=== PATIENT | female | born 1990 | race Caucasian/White ===

== ENCOUNTER 2016-09-13 09:30 | Outpatient (CLI) | payer OTHER | END 2016-09-13 11:25 | disposition home or self-care (01) | LOC: FBCOUT 09:30 → FBC 09:30 → FBCOUT 11:25 | PROVIDERS: ATTEND Family Medicine | DX: O47.9 False labor, unspecified (principal); Z3A.00 Weeks of gestation of pregnancy not specified | CPT/HCPCS: 59025; G0463 ==

== ENCOUNTER 2016-09-17 13:16 | Observation (INO) | payer OTHER ==
[2016-09-17 13:46] VITALS: BMI 31.7
[2016-09-17] MEDS ORDERED: ONDANSETRON 4 MG/2ML 2 ML VIAL IV ONE (14:13)
[2016-09-17] MEDS ORDERED: IV START KIT ONE (14:17)
[2016-09-17] MEDS: LACTATED RINGERS 1,000 ML IV SCH ×2 (14:23→16:17)
[2016-09-17] MEDS ORDERED: ONDANSETRON 4 MG/2ML 2 ML VIAL IV PRN (18:56)
[2016-09-17 19:19] LABS: SPECIFIC GRAVITY 1.015 (1.001-1.030); URINE APPEARANCE CLEAR; URINE BILIRUBIN NEGATIVE (NEGATIVE); URINE BLOOD NEGATIVE (NEGATIVE); URINE COLOR YELLOW; URINE GLUCOSE (UA) NEGATIVE (NEGATIVE); URINE LEUKOCYTE ESTERASE NEGATIVE (NEGATIVE); URINE NITRITE NEGATIVE (NEGATIVE); URINE PROTEIN NEGATIVE (NEGATIVE); URINE UROBILINOGEN NORMAL (0-1 mg/dl)
[2016-09-17] MEDS ORDERED: OXYTOCIN IN LR 500 ML IV ONE ×2 (20:45→21:07)
[2016-09-17] MEDS ORDERED: ACETAMINOPHEN 500 MG TABLET PO PRN (20:55)
[2016-09-17] MEDS ORDERED: OXYTOCIN 10 UNITS/ML VIAL ONE (21:06)
[2016-09-17] MEDS ORDERED: LIDOCAINE 1% (PRES FREE) 30 ML VIAL ONE (21:07)
[2016-09-17] MEDS ORDERED: MINERAL OIL 25 ML BOT ONE (21:07)
[2016-09-17] MEDS ORDERED: PUMP TUBING ONE (21:07)
[2016-09-17] MEDS ORDERED: LIDOCAINE Viscous 2% 15 ML UDCUP ONE (21:07)
[2016-09-17 21:32] LABS: HEMATOCRIT 38.3 % (37.0-47.0); HEMOGLOBIN 12.9 gm/l (12.0-16.0); MEAN CELL VOLUME 81.8 fl (81.0-99.0); MEAN CORPUSCULAR HEMOGLOBIN 27.6 pg (27.0-31.0); MEAN CORPUSCULAR HGB CONC 33.7 g/dl (33.0-37.0); RED CELL DISTRIBUTION WIDTH 13.9 % (11.5-14.5)
[2016-09-18] MEDS: LACTATED RINGERS 1,000 ML IV SCH ×3 (06:48→07:01)
--- NOTE | 2016-09-18 08:41 | PCMAN ---
OB Admission Note - History : 7 Term: 1 : 1 Abortions (S&E): 4 Livin EDC:: 10/12/16 Gestational Age (weeks): 36 Days (#/7): 3 Admit Cervical Dilation:: 5 Admit Cervical Effacement (%):: 75 Admit Station:: -2 Membrane Status: Intact Contractions: Yes Contraction Frequency:: 2-4 Heart Rate:: 135 Status:: category 1 EFW:: 5.5 Summary of Course:: LMP 01/06/16, US at 8 weeks confirmed MONICA as 10/12/16. She had consultation for hx of 35 week delivery recommending supplemental Progesterone which she got until last week. She had admission at [facility] for PTL earlier this and received 2 doses Betamethasone, then progressed in her to the present time. - Labs Blood Type: O (+) positive Hct/Hgb:: 38.3/12.9 Rubella Status: Immune GBS Status: Negative Abnormal Labs: None - Physical Exam General: Afebrile, No Acute Distress Psych/Mental Status: Mood/Affect Appropriate, Flat Affect Neurological: Grossly Intact, Alert, Normal Speech, Cranial Nerves 3-12 Intact HEENT: Atraumatic, PERRLA, EOMI, Mucous membr. moist/pink Lungs: Clear to Auscultation Bilaterally Cardiovascular: Regular Rate and Rhythm, No Murmur Abdomen: Normal Bowel Sounds Genitourinary: Normal Female Genitalia, Other (cervix now 4-5cm/80%/ballotable) Rectal Exam: Deferred Extremities: Full ROM, No Edema Skin: Normal Color, No Rash - Problems (1) contractions Status: Acute Code: O47.9Assessment/Plan: Patient admitted last night due to contractions with some cervical change but then her contractions resolved overnight so she will be discharged until she goes into an active labor. Labor warning signs discussed with patient. (2) 36 to 37 weeks gestation of Status: Acute Code: [id number]/Plan: Patient has already receive Betamethasone for this when she was in [facility] for PTL.
[2016-09-19] MEDS ORDERED: LACTATED RINGERS 1,000 ML ONE (04:31)
[2016-09-19] MEDS ORDERED: IV START KIT ONE (04:31)
== END 2016-09-18 08:59 | disposition home or self-care (01) ==
LOC: FBCOUT 13:16 → FBC 13:18 → INTOOBSV 20:40 → OBSVTOIN 20:40 → FBCOUT 20:40
PROVIDERS: ADMIT Family Medicine; ATTEND Family Medicine
DX: O60.03 Preterm labor without delivery, third trimester (principal); Z3A.36 36 weeks gestation of pregnancy; O09.43 Supervision of pregnancy with grand multiparity, third trimester
CPT/HCPCS: 96374; 85027; 81003; 36415; 86780; 59050 ×2; 59025; J2590 ×2; A9270 ×3; J2001; J2405 ×2; J7120; G0463; G0378 ×2

== ENCOUNTER 2016-09-20 17:04 | Inpatient (IN) | payer OTHER ==
[2016-09-20] MEDS ORDERED: OXYTOCIN IN LR 500 ML IV ONE (18:48)
[2016-09-20] MEDS ORDERED: LACTATED RINGERS 1,000 ML IV PRN (18:48)
[2016-09-20 19:24] VITALS: BMI 31.4
[2016-09-20] MEDS ORDERED: PUMP TUBING ONE (19:26)
[2016-09-20] MEDS ORDERED: LIDOCAINE Viscous 2% 15 ML UDCUP ONE (19:26)
[2016-09-20] MEDS ORDERED: OXYTOCIN 10 UNITS/ML VIAL ONE (19:26)
[2016-09-20] MEDS ORDERED: LIDOCAINE 1% (PRES FREE) 30 ML VIAL ONE (19:26)
[2016-09-20] MEDS ORDERED: IV START KIT ONE (19:26)
[2016-09-20] MEDS ORDERED: MINERAL OIL 25 ML BOT ONE (19:26)
[2016-09-20 20:35] LABS: HEMATOCRIT 38.4 % (37.0-47.0); HEMOGLOBIN 13.1 gm/l (12.0-16.0); MEAN CELL VOLUME 81.7 fl (81.0-99.0); MEAN CORPUSCULAR HEMOGLOBIN 27.9 pg (27.0-31.0); MEAN CORPUSCULAR HGB CONC 34.1 g/dl (33.0-37.0); RED CELL DISTRIBUTION WIDTH 13.8 % (11.5-14.5)
[2016-09-20] MEDS: CALCIUM CARBONATE 500 MG TAB.CHEW PO SCH (21:55)
[2016-09-20] MEDS ORDERED: OXYTOCIN IN LR 500 ML IV PRN (22:35)
[2016-09-20] MEDS ORDERED: ZOLPIDEM TARTRATE 5 MG TABLET PO PRN (22:35)
--- NOTE | 2016-09-20 22:35 | PCMAN ---
OB Admission Note - History : 7 Term: 1 : 1 Abortions (S&E): 4 Livin EDC:: 10/12/16 Gestational Age (weeks): 36 Days (#/7): 6 Admit Cervical Dilation:: 5.5 Admit Cervical Effacement (%):: 70 Admit Station:: -1 Admit Presentaton:: vtx Membrane Status: Ruptured Rupture (Date): 09/20/16 Rupture (Time): 16:10 (:) Membranes Comment:: clear Contractions: Yes Contraction Frequency:: 3-7 Heart Rate:: 130 Status:: category 1 EFW:: 6 Summary of Course:: Dates by LMP, confirmed by 8 week US. HX of PTL and 35 week delivery with last , has been on supplemental Progesterone until 2 weeks ago. Had consultation with Perinatology in [place]. Admitted at 31 weeks for PTL and received 2 doses Betamethasone, GBS at that time was neg. Repeat collected yesterday but results not done. Otherwise healthy . Had overnight observation a few days ago for contractions and cervix dilated to 5 cm but the contractions stopped so she went home until PROM occurred today. - Labs Blood Type: O (+) positive Hct/Hgb:: 38.4/13.1 Rubella Status: Immune GBS Status: Negative Abnormal Labs: None - Physical Exam General: Afebrile, No Acute Distress Psych/Mental Status: Mood/Affect Appropriate Neurological: Grossly Intact, Alert, Oriented x 4, Normal Speech HEENT: Atraumatic, PERRLA, EOMI, Mucous membr. moist/pink Lungs: Clear to Auscultation Bilaterally Cardiovascular: Regular Rate and Rhythm, No Murmur Abdomen: Normal Bowel Sounds Genitourinary: Normal Female Genitalia Extremities: Full ROM, No Edema DTR: Patellar (L): 2+ (Brisk, Normal), Patellar (R): 2+ (Brisk, Normal) Skin: Normal Color, No Rash - Problems (1) 36 to 37 weeks gestation of Status: Acute Code: [id number]/Plan: NO active labor yet, will plan for expectant management until morning then Pitocin (2) PROM (premature rupture of membranes) Qualifiers: PROM onset of labor timing: unspecified duration between rupture of membranes and onset of labor PROM gestational age: -third trimester Qualifier Code: (O42.913) premature rupture of membranes, unspecified as to length of time between rupture and onset of labor, third trimester Status: Acute Code: O42.90Assessment/Plan: Expectant management with Pitocin planned for morning
[2016-09-21] MEDS ORDERED: EPIDURAL PUMP SET ONE (10:09)
[2016-09-21] MEDS ORDERED: FENTANYL/ROPIVACAINE EPIDURAL 0 ML EP ONE (10:09)
[2016-09-21] MEDS ORDERED: EPIDURAL PROCEDURE TRAY ONE (10:10)
[2016-09-21] MEDS ORDERED: IBUPROFEN 800 MG TABLET PO ONE (10:25)
[2016-09-21] MEDS ORDERED: FENTANYL 100 MCG/2 ML VIAL ONE (10:29)
[2016-09-21] MEDS ORDERED: IBUPROFEN 800 MG TABLET ONE (10:44)
--- NOTE | 2016-09-21 11:32 | PCMDEL ---
Delivery Note - Labor 1st stage (hr/min):: 1 hr/ 25 min 2nd stage (hr/min):: 5 min 3rd stage (hr/min):: 6 min Total (hr/min):: 1 hr/ 36 min Pushed (hr/min):: 5 min - Delivery Delivery (Date): 09/21/16 Delivery (Time): 10:40 Gender: Male Presentation: Cephalic Position: OA Umbilical Cord: 3 Vessel, True Knot Delayed Cord Clamping:: 2-3 min 1 Minute Total: 9 5 Minute Total: 9 Placenta:: intact EBL:: 100 cc Perineum:: intact Suture:: N/A Anesthesia/Meds:: none Length ROM:: 18 hrs/ 25 min Comments:: Beautiful, uncomplicated delivery
[2016-09-21] MEDS ORDERED: BENZOCAINE/MENTHOL 60 APPLIC/BOT TP PRN (11:58)
[2016-09-21] MEDS ORDERED: OXYCODONE HCL 5 MG TABLET PO PRN (11:58)
[2016-09-21] MEDS ORDERED: LANOLIN 50 APPLIC/7G TUBE TP PRN (11:58)
[2016-09-21] MEDS ORDERED: CALCIUM CARBONATE 500 MG TAB.CHEW PO PRN (11:58)
[2016-09-21] MEDS: DOCUSATE SODIUM 100 MG CAPSULE PO PRN (17:02)
[2016-09-21] MEDS: IBUPROFEN 800 MG TABLET PO PRN (17:02)
[2016-09-21] MEDS: ACETAMINOPHEN 325 MG TABLET PO PRN (19:01)
[2016-09-22] MEDS: ACETAMINOPHEN 325 MG TABLET PO PRN ×2 (00:24→13:29)
[2016-09-22] MEDS: IBUPROFEN 800 MG TABLET PO PRN ×3 (00:24→20:29)
[2016-09-22] MEDS ORDERED: IV START KIT ONE (06:05)
[2016-09-22] MEDS ORDERED: LACTATED RINGERS 1,000 ML ONE (06:05)
[2016-09-22 06:12] LABS: HEMATOCRIT 36.6 % (37.0-47.0); HEMOGLOBIN 12.2 gm/l (12.0-16.0)
[2016-09-22] MEDS ORDERED: LACTATED RINGERS 500 ML IV SCH (06:45)
[2016-09-22] MEDS ORDERED: LACTATED RINGERS 1,000 ML IV SCH ×2 (07:00→08:45)
[2016-09-22] MEDS ORDERED: ONDANSETRON 4 MG/2ML 2 ML VIAL ONE (08:12)
[2016-09-22] MEDS ORDERED: BUPIVACAINE 0.75% SPINAL AMPUL 2 ML ONE (08:12)
[2016-09-22] MEDS ORDERED: MIDAZOLAM HCL 5 MG/5 ML VIAL ONE (08:13)
[2016-09-22] MEDS ORDERED: FENTANYL 100 MCG/2 ML VIAL ONE (08:13)
[2016-09-22] MEDS ORDERED: SPINAL PROCEDURAL TRAY 1 EACH ONE (08:21)
[2016-09-22] MEDS ORDERED: EPHEDRINE SULFATE UD SYR 25 MG 25 MG/5 ML SYRINGE IV ONE (09:16)
--- NOTE | 2016-09-22 09:18 | PDOC1 ---
- HPI 25 year old admitted at 37 0/7 weeks gestational age by LMP, confirmed with early ultrasound who desires tubaligation for permanent sterilization. Review of history done in anticipation of her upcoming surgery. Today patient denies any changes in health. Her course has been followed for the following problem list. - Problem List (1) 36 to 37 weeks gestation of Status: Acute (2) PROM (premature rupture of membranes) Qualifiers: PROM onset of labor timing: unspecified duration between rupture of membranes and onset of labor PROM gestational age: -third trimester Qualifier Code: (O42.913) premature rupture of membranes, unspecified as to length of time between rupture and onset of labor, third trimester Status: Acute (3) Normal vaginal delivery Status: Acute (4) Sterilization consult Status: Acute SOCIAL HISTORY: Marital status: . FOB involved, No Tobacco, alcohol use, or drug use. FAMILY HISTORY: No congenital abnormalities or twins. Allergies/Adverse Reactions: Allergies No Known Allergies Allergy (Verified 09/20/16 17:24) - Labs & Studies LABS: Blood Type-, Antibody [NEG], Rubella [Immune], RPR-[Negative], HbsAg-[Negative], HIV-[Negative] Pap neg, GC/Chlamydia-[Negative], UA-[Negative], Quad/Integrated Screen-[Negative],, GBS-neg - Physical Exam Vital Signs: Temp Pulse Resp BP Pulse Ox 97.9 F 71 16 96/63 09/22/16 07:15 09/22/16 07:15 09/22/16 07:15 09/22/16 07:15 General: Afebrile, No Acute Distress Psych/Mental Status: Mood/Affect Appropriate Neurological: Alert, Oriented x 4 HEENT: Atraumatic, PERRLA, EOMI, Mucous membr. moist/pink Lungs: Clear to Auscultation Bilaterally Cardiovascular: Regular Rate and Rhythm, No Murmur Abdomen: Normal Bowel Sounds Genitourinary: Normal Female Genitalia Rectal Exam: Deferred Extremities: Full ROM, No Edema Skin: Normal Color, Warm, Dry, Intact, No Rash - Assessment & Plan 22 y/o at 37 weeks by [LMP] who had a normal vaginal delivery and will have a bilateral tubal ligation today. Discussed with patient the risks of tubal ligation including infection, bleeding , damage to underlying structures including bowel, bladder, uterus, tubes, ovaries, as well as will have a scar and can have persistent pain and numbness at incision site. The patient agrees to proceed with BTL and signed a consent. She was advised to avoid any food or drink 8 hours prior to scheduled surgery.
[2016-09-22] MEDS ORDERED: KETAMINE HCL UD SYRINGE 100 MG/2 ML IV ONE (09:33)
[2016-09-22] MEDS ORDERED: PROPOFOL 20 ML IV ONE (09:45)
--- NOTE | 2016-09-22 10:34 | PDOC44 ---
- Subjective Day: 1 Reports Flatus, Reports Pain Tolerable, Reports , Reports Lochia Light, Reports Tolerating Regular Diet, Denies Nausea - Objective Temp Pulse Resp BP Pulse Ox 97.9 F 71 16 96/63 09/22/16 07:15 09/22/16 07:15 09/22/16 07:15 09/22/16 07:15 Lab Results 09/22/16 05:20 Hgb 12.2 Hct 36.6 L Current Medications Generic Name Dose Route Start Last Admin Trade Name Freq PRN Reason Stop Dose Admin Acetaminophen 325 - 650 mg 09/21/16 11:58 09/22/16 00:24 Tylenol PO 650 mg Q4H PRN Administration Pain (Mild) Benzocaine/Menthol 1 applic 09/21/16 11:58 Dermoplast TP PRN PRN Patient Comfort Calcium Carbonate/Glycine 500 - 1,000 mg 09/21/16 11:58 Tums PO BID PRN Indigestion Docusate Sodium 100 mg 09/21/16 11:58 09/21/16 17:02 Colace PO 100 mg DAILY PRN Administration Comfort Emollient Ointment 1 applic 09/21/16 11:58 [id number]-A-Ywspue TP PRN PRN sore nipples Lactated Ringer's 1,000 mls @ 125 mls/hr 09/22/16 08:45 Lactated Ringers IV .Q8H [facility] Ibuprofen 800 mg 09/21/16 11:58 09/22/16 00:24 Motrin PO 800 mg Q6H PRN Administration Pain (Mild) Multivi/Iron Carb/Fe Sulf/FA/Prenat 1 tab 09/21/16 09:00 Plus PO DAILY [facility] Oxycodone HCl 5 - 10 mg 09/21/16 11:58 Roxicodone PO Q3H PRN Pain (Severe) Sodium Chloride 10 ml 09/21/16 11:58 Normal Saline 10ml Flush IV PRN PRN IV Flush Sodium Chloride 10 ml 09/21/16 17:00 Normal Saline 10ml Flush IV Q8HR [facility] - Physical Exam General: Afebrile, No Acute Distress Psych/Mental Status: Mood/Affect Appropriate, Bonding Well Neurological: Alert, Oriented x 4 HEENT: Atraumatic, PERRLA, EOMI, Mucous membr. moist/pink Lungs: Clear to Auscultation Bilaterally Cardiovascular: Regular Rate and Rhythm Breast: Soft, Nipples Intact, No Nipples Cracked Fundus: Firm, Midline, At Umbilicus Abdomen: Normal Bowel Sounds Lochia: Light Extremities: Full ROM, No Edema, No Tenderness Skin: Normal Color, Warm, Dry, Intact, No Rash - Problems:Assessment/Plan (1) Normal vaginal delivery Status: AcuteAssessment/Plan: stable, continue routine care, having tubal today so post op recovery as well. (2) Sterilization consult Status: AcuteAssessment/Plan: desires tubal, consent signed, see H and P. Disposition: Stable, Anticipate DC Home Tomorrow
[2016-09-22] MEDS ORDERED: BENZOCAINE/MENTHOL 60 APPLIC/BOT TP PRN (11:18)
[2016-09-22] MEDS ORDERED: LANOLIN 50 APPLIC/7G TUBE TP PRN (11:18)
[2016-09-22] MEDS: DOCUSATE SODIUM 100 MG CAPSULE PO PRN (13:28)
[2016-09-22] MEDS: PRENATAL VIT/FE FUMARATE/FA 1 TABLET PO SCH (17:01)
[2016-09-22] MEDS: CALCIUM CARBONATE 500 MG TAB.CHEW PO SCH (17:39)
[2016-09-23] MEDS: IBUPROFEN 800 MG TABLET PO PRN ×3 (02:52→14:49)
[2016-09-23] MEDS: ACETAMINOPHEN 325 MG TABLET PO PRN ×4 (02:52→20:04)
[2016-09-23 06:37] LABS: HEMATOCRIT 35.6 % (37.0-47.0); HEMOGLOBIN 11.7 gm/l (12.0-16.0)
[2016-09-23] MEDS: PRENATAL VIT/FE FUMARATE/FA 1 TABLET PO SCH (08:54)
[2016-09-23] MEDS: DOCUSATE SODIUM 100 MG CAPSULE PO PRN (08:54)
--- NOTE | 2016-09-23 13:57 | PCMBTL ---
Brief Post Op Note: Date of Procedure: 09/22/16 Start Time: 931 Preoperative Diagnosis: 1. Status post normal vaginal delivery 09/21/16, desire for permanent sterilization Postoperative Diagnosis: 1. [Same] Procedure: Bilateral tubaligation Surgeon: Ondina Dominguez MD Assist:[] Anesthesia: Spinal Findings: normal fallopian tubes Condition: stable Complications: none IV Fluids: 1000 mLs of LR Urine Output: 0 mLs Estimated Blood Loss: 5 mLs Specimens: [N/A] Drains: [N/A]
[2016-09-23 19:27] VITALS: BP 107/60
--- NOTE | 2016-09-23 19:57 | PDOC39B ---
Hospital Course: ADMIT DATE: 09/20/16 DISCHARGE DATE: 09/23/16 ADMISSION DIAGNOSES:37 week , PROM, desire for permanent sterilization PROCEDURES: Normal vaginal delivery, bilateral tubal ligation HISTORY OF PRESENT ILLNESS: 25 year old G7 T1 L2 at 37 weeks 0 days presenting with PROM on required Pitocin augmentation then had without complication. HOSPITAL COURSE: The patient had SD, then desired tubal so underwent that the following day without complication. Post and post operative recovery was uncomplicated. By day of discharge the patient is ambulating, eating, voiding, and passing flatus without difficulty. Pain is controlled and lochia is appropriate. She is [] - Physical Exam Vital Signs: Temp Pulse Resp BP Pulse Ox 98.4 F 75 16 107/60 100 09/23/16 19:26 09/23/16 19:26 09/23/16 19:26 09/23/16 19:26 09/22/16 13:30 General: Afebrile, No Acute Distress Psych/Mental Status: Mood/Affect Appropriate Neurological: Grossly Intact, Alert, Oriented x 4, Normal Speech, Cranial Nerves 3-12 Intact HEENT: Atraumatic, PERRLA, EOMI, Mucous membr. moist/pink Lungs: Clear to Auscultation Bilaterally Cardiovascular: Regular Rate and Rhythm, No Murmur Breast: Soft, Nipples Intact Fundus: Firm, Midline, At Umbilicus Abdomen: Normal Bowel Sounds Lochia: Light Extremities: Full ROM, No Edema Skin: Normal Color, Warm, Dry, Intact, No Rash Wound: Dressing Clean/Dry/Intact, Well Approximated, Eccymosis - Discharge Diagnosis (1) Normal vaginal delivery Status: AcuteAssessment/Plan: stable, discharge home, FU 1-2 weeks (2) Sterilization consult Status: AcuteAssessment/Plan: s/p BTL, recovering well. - Discharge Plan Condition: Good Disposition: Home Instruction Forms: Vaginal Discharge Instructions Prescriptions: Cholecalciferol (Vitamin D3) [Vitamin D3] 5,000 units PO DAILY #100 capsule Follow-Up: Ondina Dominguez MD [Primary Care Provider] - In 7-10 days
== END 2016-09-23 20:38 | disposition home or self-care (01) | DRG 767 ==
LOC: FBCOUT 17:04 → FBC 17:08 → FBCOUT 18:50 → FBC 18:50 → UNDOADMIN 18:55
PROVIDERS: ADMIT Family Medicine; ATTEND Family Medicine
PROC: 10E0XZZ Delivery of Products of Conception, External Approach (ICD-10-PCS; principal; 2016-09-21)
PROC: 0UL70ZZ Occlusion of Bilateral Fallopian Tubes, Open Approach (ICD-10-PCS; 2016-09-22)
DX: O60.14X0 Preterm labor third trimester with preterm delivery third trimester, not applicable or unspecified (principal); O09.43 Supervision of pregnancy with grand multiparity, third trimester; Z30.2 Encounter for sterilization; O42.913 Preterm premature rupture of membranes, unspecified as to length of time between rupture and onset of labor, third trimester; O69.2XX0 Labor and delivery complicated by other cord entanglement, with compression, not applicable or unspecified; Z3A.36 36 weeks gestation of pregnancy; Z37.0 Single live birth